=== PATIENT | female | born 1980 ===

== ENCOUNTER 2017-11-01 09:56 | Day surgery (SDC) | payer OTHER ==
--- NOTE | 2017-11-01 11:20 | CP.SDSHP ---
Same Day Surgery H & P - History Proposed Procedure: EGD Pre-Op Diagnosis: SEENOTES - Previous Medical/Surgical History Cardiac: Hypertension Pulmonary: Asthma Neuro: Other Misc: Other Pain: 4.Moderate Pain - Allergies Allergies: Allergies No Known Allergies Allergy (Verified 11/01/17 10:22) - Physical Exam General Appearance: N Vital Signs: Vital Signs 11/01/17 10:23 Temperature 98 F Pulse Rate 80 Respiratory 20 Rate Blood Pressure 127/67 O2 Sat by Pulse 97 Oximetry Mental Status: Alert & Oriented x3 Neuro: WNL Heart: Other Lungs: Other GI: WNL - {Optional Preform as Required} Breast: WNL Abdomen: Other Rectal: Other Integument: WNL : WNL Ortho: WNL ENT: WNL - Impression Pt. Evaluated Today:Candidate for Anesthesia & Procedure: Yes - Date & Time Time: 11:20 Short Stay Discharge - Short Stay Discharge Admitting Diagnosis/Reason for Visit: DYSPEPSIA. Disposition: HOME/ ROUTINE
[2017-11-01] MEDS ORDERED: Lactated Ringer's 1,000 ML IV ONE (11:23)
[2017-11-01] MEDS ORDERED: Propofol 10 mg/ml Inj (20 ML) ONE (11:30)
[2017-11-01 11:57] VITALS: TEMP 98.7
[2017-11-01 13:59] VITALS: BP 112/59; PULSE 83; RESP 14; O2SAT 99
== END 2017-11-01 12:50 | disposition home or self-care (01) ==
LOC: C.ENDO 09:56
PROVIDERS: ATTEND Specialist
DX: K29.50 Unspecified chronic gastritis without bleeding (principal); K29.80 Duodenitis without bleeding; K44.9 Diaphragmatic hernia without obstruction or gangrene; I10 Essential (primary) hypertension; J45.909 Unspecified asthma, uncomplicated
CPT/HCPCS: 36415; 43239; 82948; 84703; 85610; 85730; 88305; 88342; J2001; J2704; J7120

== ENCOUNTER 2018-08-14 10:40 | Day surgery (SDC) | payer OTHER ==
--- NOTE | 2018-08-14 11:24 | CP.SDSHP ---
Same Day Surgery H & P - History Proposed Procedure: US guided FNA of left neck mass Pre-Op Diagnosis: LYmph node - Allergies Allergies: Allergies No Known Allergies Allergy (Verified 04/20/18 14:32) - Impression Impression: US showed two left submandibular nodes measuring up to 8 mm. Lesion on the previous imaging study is 12 mm. lymph nodes are too small for FNA. No FNA performed. Pt. Evaluated Today:Candidate for Anesthesia & Procedure: No Short Stay Discharge - Short Stay Discharge Admitting Diagnosis/Reason for Visit: DX:NECK MASS Disposition: HOME/ ROUTINE Referrals: Vanda Salinas MD [Primary Care Provider] -
[2018-08-14 18:21] VITALS: BMI 24.3
--- NOTE | 2018-08-16 11:00 | US ---
Date of service: 08/14/2018 PROCEDURE: Limited ultrasound of neck for biopsy HISTORY: LT SUBMANDIBULAR NODE COMPARISON: TECHNIQUE: Limited ultrasound of left neck performed for purposes of fine aspiration. FINDINGS: Several subcentimeter submandibular lymph nodes are present. Lymph nodes measure up to 8 millimeters. Previously described submandibular lymph node is not currently seen. IMPRESSION: Two sub centimeter left submandibular lymph nodes are identified. These are too small for FNA.
== END 2018-08-14 10:55 | disposition home or self-care (01) ==
LOC: C.SPRAD 10:40
PROVIDERS: ATTEND Radiology Vascular & Interventional Radiology
DX: Z53.9 Procedure and treatment not carried out, unspecified reason (principal)